=== PATIENT | female | born 1985 | race Caucasian/White ===

== ENCOUNTER 2016-12-20 03:12 | Inpatient (IN) | payer BC, OTHER ==
[~2016-12-20 03:12] MED LIST: ADENOSINE 6 MG/2 ML VIAL IVPUSH ONE
[2016-12-20] MEDS ORDERED: LABETALOL HCL 5 MG/1 ML (100MG/20 ML VIAL) IVPUSH ONE ×2 (03:16→03:27)
--- NOTE | 2016-12-20 03:17 | PDOC ---
History of Present Illness - General Chief Complaint: Palpitations Stated Complaint: N/V/PALPITATIONS Time Seen by Provider: 12/20/16 03:15 History Source: Patient Exam Limitations: No Limitations - History of Present Illness Initial Comments: 12/20/16 03:23 This is a 31-year-old female who comes in complaining of palpitations nausea and vomiting. Patient takes labetalol and says she is also taking it twice a day however did not take it this afternoon and when she went to take it she was vomiting some vomiting. Patient comes in with a heart rate of approximately 170. Patient otherwise denies any chest pain, shortness of breath, diaphoresis, syncope or near syncope type symptoms. Patient is noted to be vomiting here in the emergency room. Patient otherwise is healthy. PAST MEDICAL HISTORY:HTN PAST SURGICAL HISTORY: no significant history FAMILY HISTORY: no pertinant history SOCIAL HISTORY: Pt lives with family and is employed. MEDICATIONS: reviewed ALLERGIES: As per nursing notes Review of Systems General: No fevers or chills, no weakness, no weight loss HEENT: No change in vision. No sore throat,. No ear pain CardioVascular: No chest pain or shortness of breath, palpitations Respiratory:No cough, or wheezing. Gastrointestinal: Nausea and vomiting as per history of present illness Genitourinary: No dysuria, hematuria, or frequency Musculoskeletal: No joint or muscle pain or swelling Neurologic: No headache, vertigo, dizziness or loss of consciousness Psychiatric: nor depression Skin: No rashes or easy bruising Endocrine: no increased thirst or abnormal weight change Allergic: no skin or latex allergy All other systems reviewed and normal Exam: General: Well-nourished well-developed individual, no acute distress HEENT: Throat: Normal, tonsils normal, no erythema or exudate Neck: Supple, no meningeal signs, no lymphadenopathy Eyes::Pupils equal reactive and round, extraocular motion intact Chest: Nontender to palpation Cardiac: S1-S2 normal, regular rate and rhythm, no murmurs rubs or gallops, tachycardic Respiratory: Lungs clear to auscultation bilateral Abdomen: Soft, nondistended, normal bowel sounds, nontender to palpation diffusely Extremities: Warm, dry, no cyanosis, clubbing, or edema Skin: No rashes Neuro: Alert and oriented x3, nonfocal exam, grossly intact, normal gait Psych: Normal mood and affect 12/20/16 04:24 EKG shows rapid rate of 165 probable atrial fibrillation. Patient given 6 mg of Adensine IV push which slowed the rate and effort to allow me to see that patient was definitely in atrial fibrillation. Patient then given Cardizem 20 mg IV push and 120 mg by mouth with an further slowing of the cardiac rate down to the 120s. Assessment and plan: This is a 31-year-old female who comes in complaining of nausea vomiting diarrhea, dehydration and palpitations that on evaluation are secondary to new onset of rapid atrial fibrillation. Patient's heart rate was slowed with some labetalol IV as well as Cardizem IV and by mouth. Patient still has a mildly elevated white count so was remedicated with some additional Cardizem and once her heart rate is down in the normal range she will be transferred upstairs to the floor for further evaluation and monitoring. Past History - Past Medical History Allergies/Adverse Reactions: Allergies Allergy/AdvReac Type Severity Reaction Status Date / Time No Known Allergies Allergy Verified 06/25/13 08:53 Home Medications: Ambulatory Orders Acetaminophen [Tylenol .Regular Strength -] 650 mg PO Q4H PRN #0 tablet Ibuprofen [Motrin -] 600 mg PO Q4H PRN #0 tablet 07/01/13 Labetalol HCl 200 mg PO BID 07/07/13 Spironolactone 50 mg PO BID 12/20/16 Asthma: No Cancer: No Cardiac Disorders: No Diabetes: No HTN: Yes (chronic dx in 2008) Seizures: No Thyroid Disease: No - Immunization History Td Vaccination: Yes Immunization Up to Date: Yes - Psycho/Social/Smoking Cessation Hx Suicidal Ideation: No Smoking Status: Yes Smoking History: Former smoker Have you smoked in the past 12 months: Yes Number of Cigarettes Smoked Daily: 0 If you are a former smoker, when did you quit?: 09/2012 Hx Alcohol Use: No Drug/Substance Use Hx: No Hx Substance Use Treatment: No ED Treatment Course - LABORATORY CBC & Chemistry Diagram: 12/20/16 03:15 12/20/16 03:15 *DC/Admit/Observation/Transfer Diagnosis at time of Disposition: New onset atrial fibrillation, Palpitations - Discharge Dispostion Condition at time of disposition: Stable Admit: Yes
[2016-12-20 03:18] VITALS: BMI 35.4
[2016-12-20] MEDS ORDERED: ONDANSETRON 4 MG/2 ML VIAL IVPB ONE (03:19)
[2016-12-20] MEDS ORDERED: SODIUM CHLORIDE 1,000 ML IV ONE ×2 (03:19)
[2016-12-20] MEDS ORDERED: dilTIAZem HCL 50 MG/10 ML - 10 ML VIAL IVPUSH ONE ×3 (04:20→12:59)
[2016-12-20] MEDS ORDERED: dilTIAZem HCL 60 MG TABLET (FP) PO ONE (04:21)
[2016-12-20 04:34] LABS: BASOPHIL 0.2 % (0-2.0); EOSINOPHIL 1.4 % (0-4.5); MCH 30.5 pg (25.7-33.7); MCHC 33.9 g/dl (32.0-36.0); MEAN CELL VOLUME 89.7 fl (80-96); MEAN PLT VOLUME 9.4 fl (7.5-11.1); NEUTROPHILS 85.4 % (42.8-82.8); PLATELET COUNT 267 K/MM3 (134-434); RDW 13.1 % (11.6-15.6); WHITE BLOOD COUNT 19.3 K/mm3 (4.0-10.0)
[2016-12-20 05:01] LABS: ALBUMIN 3.9 g/dl (3.4-5.0); ANION GAP 16 (8-16); BILIRUBIN,TOTAL 0.7 mg/dL (0.2-1.0); CALCIUM 8.7 mg/dL (8.5-10.1); CO2 20 mmol/L (21-32); CREATININE 0.8 mg/dL (0.55-1.02); GLUCOSE,RANDOM 93 mg/dL (74-106); SGOT/AST 24 U/L (15-37); SGPT/ALT 39 U/L (12-78); TOT PROT 7.3 g/dl (6.4-8.2)
[2016-12-20 05:04] LABS: ALK PHOS 73 U/L (45-117); TROPONIN I < 0.02 ng/ml (0.00-0.05)
[2016-12-20] MEDS ORDERED: dilTIAZem HCL 60 MG TABLET (FP) PO SCH (06:00)
--- NOTE | 2016-12-20 07:28 | PDOC ---
*Physical Exam - Vital Signs Last Vital Signs Temp Pulse Resp BP Pulse Ox 97.6 F 129 H 18 104/64 100 12/20/16 03:16 12/20/16 06:16 12/20/16 06:16 12/20/16 06:16 12/20/16 06:16 - Physical Exam Comments: 12/20/16 07:22 GENERAL: Laying comfortably in bed, AAOx3 HEENT: Atraumatic, EOMI, Bilateral dialted pupils, PERRLA, Normal pharynx CVS: Irregularly irregular, Tachycardic PULM: CTA bl, no wheezing, no pleuritic chest pain ABD: nontender, nondistended MSK: Strength 5/5, sensory intact, no abnormal sweating, heat/cold intolerance ED Treatment Course - LABORATORY CBC & Chemistry Diagram: 12/20/16 03:15 12/20/16 03:15 - ADDITIONAL ORDERS Additional order review: Laboratory Results 12/20/16 12/20/16 03:15 03:15 Sodium 140 Potassium 3.9 Chloride 104 Carbon Dioxide 20 L Anion Gap 16 BUN 16 D Creatinine 0.8 D Creat Clearance w eGFR > 60 Random Glucose 93 Calcium 8.7 Total Bilirubin 0.7 AST 24 D ALT 39 D Alkaline Phosphatase 73 Creatine Kinase Cancelled 86 Troponin I Cancelled < 0.02 Total Protein 7.3 Albumin 3.9 12/20/16 03:15 RBC 5.11 D MCV 89.7 MCHC 33.9 RDW 13.1 D MPV 9.4 D Neutrophils % 85.4 H D Lymphocytes % 6.6 L D Monocytes % 6.4 Eosinophils % 1.4 Basophils % 0.2 - Medications Given in the ED: ED Medications Discontinued Medications Generic Name Dose Route Start Last Admin Trade Name Freq PRN Reason Stop Dose Admin Adenosine 6 mg 12/20/16 03:12 12/20/16 04:12 Adenocard - IVPUSH 12/20/16 03:13 6 mg NOW ONE Administration Diltiazem HCl 20 mg 12/20/16 04:20 12/20/16 04:20 Cardizem Injection - IVPUSH 12/20/16 04:21 20 mg NOW ONE Administration Diltiazem HCl 20 mg 12/20/16 04:21 12/20/16 04:23 Cardizem Injection - IVPUSH 12/20/16 04:22 Not Given ONCE ONE Diltiazem HCl 120 mg 12/20/16 04:21 12/20/16 04:26 Cardizem - PO 12/20/16 04:22 120 mg ONCE ONE Administration Sodium Chloride 1,000 mls @ 1,000 mls/hr 12/20/16 03:19 12/20/16 03:29 Normal Saline - IV 12/20/16 04:18 1,000 mls/hr .Q1H ONE Administration Sodium Chloride 1,000 mls @ 1,000 mls/hr 12/20/16 03:19 12/20/16 03:40 Normal Saline - IV 12/20/16 04:18 1,000 mls/hr .Q1H ONE Administration Labetalol HCl 10 mg 12/20/16 03:16 12/20/16 03:23 Normodyne Injection - IVPUSH 12/20/16 03:17 10 mg ONCE ONE Administration Labetalol HCl 10 mg 12/20/16 03:27 12/20/16 03:40 Normodyne Injection - IVPUSH 12/20/16 03:28 10 mg ONCE ONE Administration Ondansetron HCl 8 mg 12/20/16 03:19 12/20/16 03:28 Zofran Injection IVPB 12/20/16 03:20 8 mg ONCE ONE Administration Progress Note - Progress Note Progress Note: Discussed Atrial fibrillation finding with patient. She notes she has had episodes like this 3 or 4 times in the past few years. States palpitations started last night around midnight after a bout of violent vomiting. Denies history of substance abuse. Denies recent immobility, history of clots, family history of clots or bleeding disorders. Will run thyroid function testing. No clinical signs of PE. PERC negative except for heart rate. *DC/Admit/Observation/Transfer Diagnosis at time of Disposition: New onset atrial fibrillation, Palpitations - Discharge Dispostion Condition at time of disposition: Stable
[2016-12-20] MEDS ORDERED: MAGNESIUM SULFATE 2 GM in SODIUM CHLORIDE 100 ML IVPB ONE (08:34)
--- NOTE | 2016-12-20 08:40 | HP ---
CHIEF COMPLAINT: PCP: HISTORY OF PRESENT ILLNESS: ER course was notable for: (1) (2) (3) Recent Travel: PAST MEDICAL HISTORY: PAST SURGICAL HISTORY: Social History: Smoking: Alcohol: Drugs: Family History: Allergies No Known Allergies Allergy (Verified 06/25/13 08:53) HOME MEDICATIONS: Medication Instructions Recorded Acetaminophen [Tylenol .Regular 650 mg PO Q4H PRN #0 tablet 07/01/13 Strength -] Ibuprofen [Motrin -] 600 mg PO Q4H PRN #0 tablet 07/01/13 Labetalol HCl 200 mg PO BID 07/07/13 Spironolactone 50 mg PO BID 12/20/16 REVIEW OF SYSTEMS CONSTITUTIONAL: Absent: fever, chills, diaphoresis, generalized weakness, malaise, loss of appetite, weight change HEENT: Absent: rhinorrhea, nasal congestion, throat pain, throat swelling, difficulty swallowing, mouth swelling, ear pain, eye pain, visual changes CARDIOVASCULAR: Absent: chest pain, syncope, palpitations, irregular heart rate, lightheadedness , peripheral edema RESPIRATORY: Absent: cough, shortness of breath, dyspnea with exertion, orthopnea, wheezing, stridor, hemoptysis GASTROINTESTINAL: Absent: abdominal pain, abdominal distension, nausea, vomiting, diarrhea, constipation, melena, hematochezia GENITOURINARY: Absent: dysuria, frequency, urgency, hesitancy, hematuria, flank pain, genital pain MUSCULOSKELETAL: Absent: myalgia, arthralgia, joint swelling, back pain, neck pain SKIN: Absent: rash, itching, pallor HEMATOLOGIC/IMMUNOLOGIC: Absent: easy bleeding, easy bruising, lymphadenopathy, frequent infections ENDOCRINE: Absent: unexplained weight gain, unexplained weight loss, heat intolerance, cold intolerance NEUROLOGIC: Absent: headache, focal weakness or paresthesias, dizziness, unsteady gait, seizure, mental status changes, bladder or bowel incontinence PSYCHIATRIC: Absent: anxiety, depression, suicidal or homicidal ideation, hallucinations. PHYSICAL EXAMINATION Vital Signs - 24 hr 12/20/16 12/20/16 12/20/16 03:16 03:25 03:39 Temperature 97.6 F Pulse Rate 178 H Pulse Rate [ 162 H 157 H Apical] Respiratory 16 18 Rate Blood Pressure 111/57 Blood Pressure 87/61 92/63 [Right Arm] O2 Sat by Pulse 98 100 Oximetry (%) 12/20/16 12/20/1612/20/17 04:18 04:29 05:44 Temperature Pulse Rate Pulse Rate [ 178 H 124 H 148 H Apical] Respiratory 22 16 16 Rate Blood Pressure Blood Pressure 107/83 104/65 96/72 [Right Arm] O2 Sat by Pulse 100 100 100 Oximetry (%) 12/20/16 12/20/16 06:16 08:00 Temperature Pulse Rate Pulse Rate [ 129 H 112 H Apical] Respiratory 18 20 Rate Blood Pressure Blood Pressure 104/64 112/62 [Right Arm] O2 Sat by Pulse 100 100 Oximetry (%) GENERAL: Awake, alert, and fully oriented, in no acute distress. HEAD: Normal with no signs of trauma. EYES: Pupils equal, round and reactive to light, extraocular movements intact, sclera anicteric, conjunctiva clear. No lid lag. EARS, NOSE, THROAT: Ears normal, nares patent, oropharynx clear without exudates. Moist mucous membranes. NECK: Normal range of motion, supple without lymphadenopathy, JVD, or masses. LUNGS: Breath sounds equal, clear to auscultation bilaterally. No wheezes, and no crackles. No accessory muscle use. HEART: Regular rate and rhythm, normal S1 and S2 without murmur, rub or gallop. ABDOMEN: Soft, nontender, not distended, normoactive bowel sounds, no guarding, no rebound, no masses. No hepatomegaly or splenomegaly. MUSCULOSKELETAL: Normal range of motion at all joints. No bony deformities or tenderness. No CVA tenderness. UPPER EXTREMITIES: 2+ pulses, warm, well-perfused. No cyanosis. No clubbing. Cap refill <2 seconds. No peripheral edema. LOWER EXTREMITIES: 2+ pulses, warm, well-perfused. No calf tenderness. No peripheral edema. NEUROLOGICAL: Cranial nerves II-XII intact. Normal speech. Normal gait. PSYCHIATRIC: Cooperative. Good eye contact. Appropriate mood and affect. SKIN: Warm, dry, normal turgor, no rashes or lesions noted. Laboratory Results - last 24 hr 12/20/16 12/20/16 12/20/16 03:15 03:15 03:15 WBC 19.3 H D RBC 5.11 D Hgb 15.5 H D Hct 45.8 H D MCV 89.7 MCHC 33.9 RDW 13.1 D Plt Count 267 D MPV 9.4 D Neutrophils % 85.4 H D Lymphocytes % 6.6 L D Monocytes % 6.4 Eosinophils % 1.4 Basophils % 0.2 Sodium 140 Potassium 3.9 Chloride 104 Carbon Dioxide 20 L Anion Gap 16 BUN 16 D Creatinine 0.8 D Creat Clearance w eGFR > 60 Random Glucose 93 Calcium 8.7 Total Bilirubin 0.7 AST 24 D ALT 39 D Alkaline Phosphatase 73 Creatine Kinase 86 Cancelled Troponin I < 0.02 Cancelled Total Protein 7.3 Albumin 3.9 Urine HCG, Qual 12/20/16 05:47 WBC RBC Hgb Hct MCV MCHC RDW Plt Count MPV Neutrophils % Lymphocytes % Monocytes % Eosinophils % Basophils % Sodium Potassium Chloride Carbon Dioxide Anion Gap BUN Creatinine Creat Clearance w eGFR Random Glucose Calcium Total Bilirubin AST ALT Alkaline Phosphatase Creatine Kinase Troponin I Total Protein Albumin Urine HCG, Qual Negative ASSESSMENT/PLAN:
[2016-12-20] MEDS ORDERED: MAGNESIUM SULF 50% (8.12 MEQ/2 ML-1 GM VIAL) ONE (08:50)
--- NOTE | 2016-12-20 09:51 | EKG ---
Test Reason : Blood Pressure : / mmHG Vent. Rate : 165 BPM Atrial Rate : 174 BPM P-R Int : 000 ms QRS Dur : 082 ms QT Int : 288 ms P-R-T Axes : 000 053 014 degrees QTc Int : 477 ms ATRIAL FIBRILLATION WITH RAPID VENTRICULAR RESPONSE ABNORMAL ECG WHEN COMPARED WITH ECG OF 29-JUN-2013 10:17, ATRIAL FIBRILLATION HAS REPLACED SINUS RHYTHM Confirmed by SHADY CLEMENS MD ([id number]) on 12/20/2016 9:50:48 AM Referred By: MD CRUZ Confirmed By:SHADY CLEMENS MD
[2016-12-20 14:10] LABS: TROPONIN I < 0.02 ng/ml (0.00-0.05)
--- NOTE | 2016-12-20 15:28 | HP ---
CHIEF COMPLAINT: palpitations HISTORY OF PRESENT ILLNESS: This patient is a 31-year-old female who comes in complaining of palpitations , nausea and vomiting. Patient takes labetalol 2x per day at home for her blood pressure that she is diagnosed with high blood pressure since age of 23 of age however did not take it this afternoon and has been forgetting to take her meds on and off. The day before this event ,patient had so many junk food ([employer] , pasta with butter and so many other junk food. The next day the patient developed nausea and vomiting where she was not able to take her Labetolol. Patient comes in with a heart rate of approximately 170. Patient otherwise denies any chest pain, shortness of breath, diaphoresis, syncope or near syncope type symptoms. Patient is noted to be vomiting here in the emergency room as per Dr. Collins, Patient otherwise is healthy. As per patient had multiple episodes before but not as severe as this event. Allergies/Adverse Reactions: Allergies Allergy/AdvReac Type Severity Reaction Status Date / Time No Known Allergies Allergy Verified 06/25/13 08:53 Home Medications: Acetaminophen [Tylenol .Regular Strength -] 650 mg PO Q4H PRN #0 tablet Ibuprofen [Motrin -] 600 mg PO Q4H PRN #0 tablet 07/01/13 Labetalol HCl 200 mg PO BID 07/07/13 Spironolactone 50 mg PO BID 12/20/14 Asthma: No Cancer: No Cardiac Disorders: No Diabetes: No HTN: Yes (chronic dx in 2008) Seizures: No Thyroid Disease: No - Immunization History Td Vaccination: Yes Immunization Up to Date: Yes - Psycho/Social/Smoking Cessation Hx Suicidal Ideation: No Smoking Status: Yes Smoking History: Former smoker Hx Alcohol Use: No Drug/Substance Use Hx: No Hx Substance Use Treatment: No REVIEW OF SYSTEMS CONSTITUTIONAL: Absent: fever, chills, diaphoresis, generalized weakness, malaise, loss of appetite, weight change HEENT: Absent: rhinorrhea, nasal congestion, throat pain, throat swelling, difficulty swallowing, mouth swelling, ear pain, eye pain, visual changes CARDIOVASCULAR: Absent: chest pain, syncope, palpitations, irregular heart rate , lightheadedness, peripheral edema RESPIRATORY: Absent: cough, shortness of breath, dyspnea with exertion, orthopnea, wheezing, stridor, hemoptysis GASTROINTESTINAL:Absent: abdominal pain, abdominal distension, nausea, vomiting , diarrhea, constipation, melena, hematochezia GENITOURINARY: Absent: dysuria, frequency, urgency, hesitancy, hematuria, flank pain, genital pain MUSCULOSKELETAL: Absent: myalgia, arthralgia, joint swelling, back pain, neck pain SKIN: Absent: rash, itching, pallor HEMATOLOGIC/IMMUNOLOGIC: Absent: easy bleeding, easy bruising, lymphadenopathy, frequent infections ENDOCRINE:Absent: unexplained weight gain, unexplained weight loss, heat intolerance, cold intolerance NEUROLOGIC: Absent: headache, focal weakness or paresthesias, dizziness, unsteady gait, seizure, mental status changes, bladder or bowel incontinence PSYCHIATRIC: Absent: anxiety, depression, suicidal or homicidal ideation, hallucinations PHYSICAL EXAMINATION Vital Signs Period Temp Pulse Resp BP Sys/Cat Pulse Ox Last 24 Hr 97.6 F-98.3 F 87-178 14-22 79-116/55-84 96-100 GENERAL: Awake, alert, and fully oriented, in no acute distress. HEAD: Normal with no signs of trauma. EYES: Pupils equal, round and reactive to light, extraocular movements intact, sclera anicteric, conjunctiva clear. No lid lag. EARS, NOSE, THROAT: Ears normal, oropharynx clear without exudates. Moist mucous membranes. NECK: Normal range of motion, supple without lymphadenopathy, JVD, or masses. LUNGS: Breath sounds equal, clear to auscultation bilaterally. No wheezes, and no crackles. No accessory muscle use. HEART: irregularly irregular rate and rhythm, normal S1 and S2 without murmur, no rub or gallop. ABDOMEN: Soft, nontender, not distended, normoactive bowel sounds, no guarding, no rebound, no masses. No hepatomegaly or splenomegaly. MUSCULOSKELETAL: Normal range of motion at all joints. No bony deformities or tenderness. No CVA tenderness. EXTREMITIES: 2+ pulses, warm, well-perfused. No calf tenderness. No peripheral edema. NEUROLOGICAL: Cranial nerves II-XII intact. Normal speech. Normal gait. PSYCHIATRIC: Cooperative. Good eye contact. Appropriate mood and affect. SKIN: Warm, dry, normal turgor, no rashes or lesions noted. Laboratory Results - last 24 hr 12/20/16 13:00 Creatine Kinase 74 Troponin I < 0.02 HOME MEDICATIONS: Medication Instructions Recorded Acetaminophen [Tylenol .Regular 650 mg PO Q4H PRN #0 tablet 07/01/13 Strength -] Ibuprofen [Motrin -] 600 mg PO Q4H PRN #0 tablet 07/01/13 Labetalol HCl 200 mg PO BID 07/07/13 Spironolactone 50 mg PO BID 12/20/16 CBCD WBC 19.3 K/mm3 (4.0-10.0) H D 12/20/16 03:15 RBC 5.11 M/mm3 (3.60-5.2) D 12/20/16 03:15 Hgb 15.5 GM/dL (10.7-15.3) H D 12/20/16 03:15 Hct 45.8 % (32.4-45.2) H D 12/20/16 03:15 MCV 89.7 fl (80-96) 12/20/16 03:15 MCHC 33.9 g/dl (32.0-36.0) 12/20/16 03:15 RDW 13.1 % (11.6-15.6) D 12/20/16 03:15 Plt Count 267 K/MM3 (134-434) D 12/20/16 03:15 MPV 9.4 fl (7.5-11.1) D 12/20/16 03:15 CMP Sodium 140 mmol/L (136-145) 12/20/16 03:15 Potassium 3.9 mmol/L (3.5-5.1) 12/20/16 03:15 Chloride 104 mmol/L (98-107) 12/20/16 03:15 Carbon Dioxide 20 mmol/L (21-32) L 12/20/16 03:15 Anion Gap 16 (8-16) 12/20/16 03:15 BUN 16 mg/dL (7-18) D 12/20/16 03:15 Creatinine 0.8 mg/dL (0.55-1.02) D 12/20/16 03:15 Creat Clearance w eGFR > 60 (>60) 12/20/16 03:15 Random Glucose 93 mg/dL (74-106) 12/20/16 03:15 Calcium 8.7 mg/dL (8.5-10.1) 12/20/16 03:15 Total Bilirubin 0.7 mg/dL (0.2-1.0) 12/20/16 03:15 AST 24 U/L (15-37) D 12/20/16 03:15 ALT 39 U/L (12-78) D 12/20/16 03:15 Alkaline Phosphatase 73 U/L (45-117) 12/20/16 03:15 Total Protein 7.3 g/dl (6.4-8.2) 12/20/16 03:15 Albumin 3.9 g/dl (3.4-5.0) 12/20/16 03:15 CARDIAC ENZYMES Creatine Kinase 74 IU/L (26-192) 12/20/16 13:00 Troponin I < 0.02 ng/ml (0.00-0.05) 12/20/16 13:00 ASSESSMENT/PLAN: This patient is a 31-year-old female who presents to ED.complaining of palpitations ,nausea and vomiting. Patient takes labetalol 2x per day at home for her blood pressure that she is diagnosed since age of 23 ,however did not take it this afternoon and has been forgetting to take her meds on and off. # Afib with RVR rate of 170s at mary given Adenosine and patient was found to be in Rapid Afib.[id number] score of 2 Given IV cardizem in ED, currently the rate is in 120's. Patient was transferred to [facility]. Patient is seen by transfer machine operator . CE q6x2 more set, EKG in am . Asa daily for now. CArdizem IV if needed. # Hx of HTN since age 23, on Labetolol continue. # Acute Leukocytosis will monitor ,will repeat WBC IN AM IF still elevated will do septic w/u. DVT PX: Lovenox 40mg sq Visit type - Emergency Visit Emergency Visit: Yes ED Registration Date: 12/20/16 Care time: The patient presented to the Emergency Department on the above date and was hospitalized for further evaluation of their emergent condition. - New Patient This patient is new to me today: Yes Date on this admission: 12/20/16 - Critical Care Critical Care patient: No
--- NOTE | 2016-12-20 16:11 | PN ---
Progress Note (short form) - Note Progress Note: Chief Complaint: Events noted, notes reviewed, palpitations referable to atrial fibrillation with rapid ventricular response, nausea, vomiting and diarrhea History of Present Illness: Seen and examined on telemetry. Full consult dictated Medications: Current Medications Aspirin (Ecotrin -) 162 mg PO DAILY FREDY Metoprolol Tartrate (Lopressor -) 25 mg PO BID FREDY Review of Systems - Review of Systems Constitutional: denies: Chills, Fever Cardiovascular: As noted above Respiratory: denies: Cough or Sputum Production Gastrointestinal: reports: Nausea, Vomiting and Diarrhea denies: Constipation or Abdominal Pain Neurological: No Symptoms Reported Vital Signs: Last Vital Signs Temp Pulse Resp BP Pulse Ox 98.3 F 148 H 14 112/69 98 12/20/16 15:00 12/20/16 15:00 12/20/16 15:00 12/20/16 15:00 12/20/16 09:38 Neck: Supple Negative JVD No Bruit Respiratory: Diminished Breath Sounds at the Bases Cardiovascular: S1 S2 Irregularly Irregular No Murmurs clicks or Gallops Gastrointestinal: Soft Benign Normal Bowel Sounds Ext: Negative Edema Labs: CBC, BMP 12/20/16 03:15 12/20/16 03:15 Hepatic Panel Total Bilirubin 0.7 mg/dL (0.2-1.0) 12/20/16 03:15 AST 24 U/L (15-37) D 12/20/16 03:15 ALT 39 U/L (12-78) D 12/20/16 03:15 Alkaline Phosphatase 73 U/L (45-117) 12/20/16 03:15 Albumin 3.9 g/dl (3.4-5.0) 12/20/16 03:15 Troponin, BNP 12/20/16 12/20/16 12/20/16 03:15 03:15 13:00 Troponin I < 0.02 Cancelled < 0.02 Assessment/Plan ASSESSMENT: 1. Palpitations referable to atrial fibrillation with rapid ventricular response , [id number] score of 2 precipitated by profound vaso-vagal stimulation in conjunction with 2. Nausea, vomiting and diarrhea related to probable viral gastero-enteritis 3. History of palpitations with documented arrhythmia 4. HTN PLAN: 1. B-Blockers Lopressor 2. Prn IV Cardizem for rate control with caution 3. Recommend ASA at this point considering the above noted [id number] score of 2 unless arrhythmia persists beyond 48 hours 4. IV fluid for hydration considering the above presentation 5. Echocardiography to evaluate LV systolic function and LA size Above was discussed in detail with the patient Blane Glez M.D.
[2016-12-20] MEDS: ASPIRIN COATED 81 MG TABLET.EC PO SCH (16:22)
[2016-12-20] MEDS: METOPROLOL TARTRATE 25 MG TABLET (FP) PO SCH ×2 (16:22→21:45)
[2016-12-20] MEDS: SODIUM CHLORIDE 1,000 ML IV SCH ×2 (17:00→21:48)
--- NOTE | 2016-12-20 23:32 | CONS ---
DATE OF CONSULTATION: 12/20/2016 REQUESTED BY: Hospitalist. CHIEF COMPLAINT: Palpitation. Evaluation of cardiac arrhythmia. HISTORY OF PRESENT ILLNESS: A 31-year-old female with morbid obesity with prior history of palpitations and no documented sustained arrhythmia who presented to [facility] with nausea, vomiting, abdominal discomfort and diarrhea consistent with probable viral gastroenteritis subsequent to second bout of vomiting. The patient had onset of palpitations that sustained, in view of which, she presented to [facility] Emergency Room at which point she was noted to be in atrial fibrillation with rapid ventricular response. Multiple therapies were attempted for purpose of rate control. The patient, in addition, reported history of hypertension, which was diagnosed during her dating back to 2012. The patient has been on labetalol therapy for the above-noted hypertensive cardiovascular disease. The patient denies any history of diabetes mellitus or hypercholesterolemia. The patient reports prior history of tobacco abuse. The patient reports family history of premature coronary artery disease but there is no history of cardiac arrhythmia. The patient denies any chest discomfort. The patient denies any dyspnea, orthopnea, paroxysmal nocturnal dyspnea or peripheral edema. The patient denies any dizziness, lightheadedness or syncope. The patient denies any fatigue or tiredness. PAST MEDICAL HISTORY: Palpitations with no evidence of sustained arrhythmia, hypertensive cardiovascular disease. PAST SURGICAL HISTORY: section. SOCIAL HISTORY: Prior history of smoking. Social alcohol intake. FAMILY HISTORY: Positive for coronary artery disease. ALLERGIES: None reported. MEDICAL THERAPY AT HOME: Included labetalol 200 mg twice a day. REVIEW OF SYSTEMS: Head and Neck: Denies headache, photophobia, blurring of vision. Respiratory: No cough or sputum production. Cardiovascular: As noted above. Gastrointestinal: Reports nausea, vomiting, diarrhea and abdominal discomfort. Genitourinary: No symptoms reported. PHYSICAL EXAMINATION: Vital Signs: Blood pressure is 112/69 mmHg, pulse rate 148 beats per minute, irregularly irregular. Head and Neck: Pupils equal and reactive to light and accommodation. Extraocular muscles are intact . Anicteric sclerae. Negative JVD. No bruits appreciated. Chest: Clear to auscultation and percussion. Cardiovascular: S1, S2 irregularly irregular. No murmur, clicks, or gallops. Abdomen: Soft, benign. Normoactive bowel sounds. Extremities: Negative edema. Intact distal pulses. No calf tenderness. LABORATORY DATA: Electrocardiogram reveals atrial fibrillation with rapid ventricular response. Chest x-ray report is noted. CBC revealed white cell count 19.3, hemoglobin 15.5, platelet count 267. Basic metabolic profile revealed sodium 140, potassium 3.9, BUN 16, creatinine 0.8, glucose 93, troponin less than 0.02. ASSESSMENT: 1. Palpitations referable to atrial fibrillation with rapid ventricular response. CHADS-2 VASc score of 2, precipitated by profound vasovagal stimulation in conjunction with No. 2. 2. Nausea, vomiting and diarrhea, related to probable viral gastroenteritis. 3. History of palpitation with no documented sustained arrhythmia. 4. Hypertensive cardiovascular disease. PLAN: 1. Beta-blockers in form of Lopressor. 2. P.r.n. IV Cardizem for rate control with caution. 3. Recommend aspirin at this point, considering the above-noted CHADS-2 VASc score of 2, unless arrhythmia persists beyond 48 hours. 4. IV fluid for hydration considering the above-noted presentation. 5. Echocardiography to evaluate left ventricular systolic function and left atrial size. The above was discussed in detail with the patient. Thank you for your kind referral. KATIE GONZALES M.D. [id number]
[2016-12-21] MEDS: SODIUM CHLORIDE 1,000 ML IV SCH (04:15)
[2016-12-21 08:30] LABS: BASOPHIL 0.4 % (0-2.0); EOSINOPHIL 2.2 % (0-4.5); MCH 30.9 pg (25.7-33.7); MCHC 33.9 g/dl (32.0-36.0); MEAN CELL VOLUME 91.3 fl (80-96); MEAN PLT VOLUME 8.2 fl (7.5-11.1); NEUTROPHILS 59.2 % (42.8-82.8); PLATELET COUNT 166 K/MM3 (134-434); RDW 12.7 % (11.6-15.6); WHITE BLOOD COUNT 6.8 K/mm3 (4.0-10.0)
--- NOTE | 2016-12-21 08:54 | PN ---
Progress Note (short form) - Note Progress Note: Chief Complaint: Events noted, notes reviewed, converted spontaneously to sinus rhythm last night, denies any chest pain, dyspnea or palpitations, denies an further nausea, vomiting or diarrhea History of Present Illness: Seen and examined on telemetry. Events noted, notes reviewed, converted spontaneously to sinus rhythm last night, denies any chest pain, dyspnea or palpitations, denies an further nausea, vomiting or diarrhea Patient was advised since she converted to sinus rhythm, no additional complaints offered that she can be D/C home on B-Michelle and ASA therapy with outpatient F/U and further evaluation (including ambulatory clinical research monitor, echocardiography and ETT/stress echocardiography) Medications: Current Medications Aspirin (Ecotrin -) 162 mg PO DAILY [facility] Last Admin: 12/20/16 16:22 Dose: 162 mg Sodium Chloride (Normal Saline -) 1,000 mls @ 150 mls/hr IV ASDIR [facility] Last Admin: 12/21/16 04:15 Dose: 150 mls/hr Metoprolol Tartrate (Lopressor -) 25 mg PO BID [facility] Last Admin: 12/20/16 21:45 Dose: 25 mg Review of Systems - Review of Systems Constitutional: denies: Chills, Fever Cardiovascular: As noted above Respiratory: denies: Cough or Sputum Production Gastrointestinal: denies: Nausea, Vomiting, Diarrhea, Constipation or Abdominal Pain Neurological: No Symptoms Reported Vital Signs: Last Vital Signs Temp Pulse Resp BP Pulse Ox 98.1 F 96 H 20 91/50 96 12/21/16 06:00 12/21/16 06:00 12/21/16 06:00 12/21/16 06:00 12/20/16 21:00 Neck: Supple Negative JVD No Bruit Respiratory: Clear to A&P Bilaterally Cardiovascular: S1 S2 Regular Rate and Rhythm No Murmurs clicks or Gallops Gastrointestinal: Soft Benign Normal Bowel Sounds Ext: Negative Edema Labs: CBC, BMP 12/21/16 08:05 12/20/16 03:15 Assessment/Plan ASSESSMENT: 1. Palpitations referable to paroxysmal atrial fibrillation with spontaneous conversion to sinus rhythm, [id number] score of 2 (precipitated by profound vaso-vagal stimulation) 2. Nausea, vomiting and diarrhea related to probable viral gastero-enteritis 3. History of palpitations with no documented arrhythmia other than above 4. HTN PLAN: 1. Continue Lopressor 2. Continue ASA at this point considering the above noted [id number] score of 2 unless arrhythmia recurs 3. Further outpatient evaluation including ambulatory clinical research monitor, echocardiography and ETT/stress echocardiography Above was discussed in detail with the patient Blane Glez M.D.
[2016-12-21] MEDS: ASPIRIN COATED 81 MG TABLET.EC PO SCH (09:45)
[2016-12-21] MEDS: METOPROLOL TARTRATE 25 MG TABLET (FP) PO SCH (09:46)
--- NOTE | 2016-12-21 10:12 | DS ---
[id number] Rate 20 12/21/16 06:00 Blood Pressure 91/50 12/21/16 06:00 O2 Sat by Pulse Oximetry (%) 96 12/20/16 21:00 Findings/Remarks: General: NAD, A&Ox3 Neck: Supple Negative JVD No Bruit Respiratory: Clear to A&P Bilaterally Cardiovascular: S1 S2 Regular Rate and Rhythm No Murmurs clicks or Gallops Gastrointestinal: Soft Benign Normal Bowel Sounds Ext: Negative Edema Labs: CBC, BMP 12/21/16 08:05 Discharge Summary Reason For Visit: NEW ONSET A-FIB, PALPITATIONS Current Active Problems New onset atrial fibrillation (Acute) Palpitations (Acute) Hospital Course: This patient is a 31-year-old female who comes in complaining of palpitations , nausea and vomiting. Patient takes labetalol 2x per day at home for her blood pressure that she is diagnosed with high blood pressure since age of 23 of age however did not take it this afternoon and has been forgetting to take her meds on and off. The day before this event ,patient had so many junk food ([employer] , pasta with butter and so many other junk food. The next day the patient developed nausea and vomiting where she was not able to take her Labetolol. Patient comes in with a heart rate of approximately 170. Patient otherwise denies any chest pain, shortness of breath, diaphoresis, syncope or near syncope type symptoms. Patient is noted to be vomiting here in the emergency room as per Dr. Collins, Patient otherwise is healthy. Patient found to have Atrial fibrillation with RVR. She converted back to normal sinus rhythm overnight. Discussed with cardiology, will discharge with ASA. F/u with cardiology for outpatient ECHo and ETT/stress. Condition: Improved - Instructions Diet, Activity, Other Instructions: Please return to the ED with new, persistent, or worsening symptoms. Please follow-up with providers as indicated. Referrals: Blane Glez MD [Staff Physician] - (Please call Dr. Glez's office tomorrow to schedule an appointment for an outpatient echocardiogram and exercise stress test) Sanjay Olmedo MD [Staff Physician] - (Please follow-up with a primary care provider within 2-3 days) Disposition: HOME - Home Medications Comprehensive Discharge Medication List: Ambulatory Orders Acetaminophen [Tylenol .Regular Strength -] 650 mg PO Q4H PRN #0 tablet Ibuprofen [Motrin -] 600 mg PO Q4H PRN #0 tablet 07/01/13 Aspirin Coated [Ecotrin -] 162 mg PO DAILY #60 tablet.ec 12/21/16 Metoprolol Tartrate [Lopressor -] 25 mg PO BID #60 tablet 12/21/16 This patient is new to me today: Yes Date on this admission: 12/21/16 Emergency Visit: Yes ED Registration Date: 12/20/16 Care time: The patient presented to the Emergency Department on the above date and was hospitalized for further evaluation of their emergent condition. Critical Care patient: No - Discharge Referral Referred to [facility] Yes Physician Referral: Sanjay Spencer MD ([facility])
[2016-12-21 10:58] VITALS: BP 93/63; PULSE 97; TEMP 98.2
--- NOTE | 2016-12-22 18:26 | EKG ---
Test Reason : Blood Pressure : / mmHG Vent. Rate : 126 BPM Atrial Rate : 136 BPM P-R Int : 000 ms QRS Dur : 086 ms QT Int : 282 ms P-R-T Axes : 000 051 011 degrees QTc Int : 408 ms ATRIAL FIBRILLATION WITH RAPID VENTRICULAR RESPONSE WHEN COMPARED WITH ECG OF 20-DEC-2016 04:10, NO SIGNIFICANT CHANGE WAS FOUND Confirmed by MD DAVIS MARJORY ([id number]) on 12/22/2016 6:26:04 PM Referred By: MD CRUZ Confirmed By:PATSY DAVIS MD
--- NOTE | 2016-12-23 23:29 | EKG ---
Test Reason : Blood Pressure : / mmHG Vent. Rate : 097 BPM Atrial Rate : 097 BPM P-R Int : 140 ms QRS Dur : 092 ms QT Int : 362 ms P-R-T Axes : 047 050 016 degrees QTc Int : 459 ms NORMAL SINUS RHYTHM NORMAL ECG WHEN COMPARED WITH ECG OF 20-DEC-2016 04:30, SINUS RHYTHM HAS REPLACED ATRIAL FIBRILLATION Confirmed by NAHEED IYER MD ([id number]) on 12/23/2016 11:28:53 PM Referred By: Confirmed By:NAHEED IYER MD
== END 2016-12-21 10:50 | disposition home or self-care (01) | DRG 309 ==
LOC: FER 03:12 → J4W 12:10
PROVIDERS: ADMIT Internal Medicine; ATTEND Registered Nurse
DX: I48.91 Unspecified atrial fibrillation (principal); A08.39 Other viral enteritis; I10 Essential (primary) hypertension; Z87.891 Personal history of nicotine dependence; R11.2 Nausea with vomiting, unspecified
CPT/HCPCS: 36415; 71010-TC; 80053; 82550; 84443; 84484; 84703; 85025; 93005; 93010; 99285-25